=== PATIENT | male | born 1950 | race Caucasian/White ===

== ENCOUNTER → 2016-10-08 | Outpatient (CLI) | payer MEDICARE, OTHER ==
[~2016-10-08] MED LIST: ALLEGRA60 MG PO; ASPIRIN LO-DOSE81 MG PO; FISH OIL 1,0001 EACH PO; FLONASE 50 MCG/16 GM NOSE; ZANTAC (NON-FO150 MG PO; ZANTAC150 MG PO
== END | disposition disaster alternative care site (69) ==
LOC: GPOC 10-01 15:00 → GRAD 14:18 → GPOC 15:00
PROC: 0GBG3ZX Excision of Left Thyroid Gland Lobe, Percutaneous Approach, Diagnostic (ICD-10-PCS; principal; 2016-10-08)
DX: E04.1 Nontoxic single thyroid nodule (principal)